=== PATIENT | female | born 1935 | race Caucasian/White ===

== ENCOUNTER 2018-08-12 06:56 | Day surgery (SDC) | payer MEDICARE, OTHER ==
[2018-08-11 12:03] LABS: BASOPHILS # (AUTO) 0.1 X10'3 (0-0.2); BASOPHILS % (AUTO) 1.1 % (0-1); EOSINOPHILS # (AUTO) 0.2 X10'3 (0-0.9); EOSINOPHILS % (AUTO) 3.1 % (0-6); HEMATOCRIT 35.6 % (35.0-45.0); HEMOGLOBIN 12.1 g/dl (12.0-16.0); LYMPHOCYTES # (AUTO) 1.8 X10'3 (1.1-4.8); LYMPHOCYTES % (AUTO) 28.8 % (21-51); MEAN CORPUSCULAR HGB CONC 34.1 g/dL (33.0-36.5); MEAN CORPUSCULAR VOLUME 90.9 FL (78-98); MEAN PLATELET VOLUME 7.3 FL (7.4-10.4); MONOCYTES # (AUTO) 0.6 X10'3 (0-0.9); MONOCYTES % (AUTO) 9.1 % (2-12); NEUTROPHILS # (AUTO) 3.7 X10'3 (1.8-7.7); NEUTROPHILS % (AUTO) 57.9 % (42-75); PLATELET COUNT 288 X10'3 (140-440); RED BLOOD COUNT 3.92 X10'6 (4.20-5.60); RED CELL DISTRIBUTION WIDTH 12.9 % (11.5-14.5); WHITE BLOOD COUNT 6.4 X10'3 (4.5-11.0)
[2018-08-11 12:11] LABS: ALBUMIN 3.7 G/DL (3.4-5.0); ANION GAP 7 (8-16); BLOOD UREA NITROGEN 18 MG/DL (7-18); BUN/CREATININE RATIO 16.7 (6.6-38.0); CALCIUM 9.2 MG/DL (8.5-10.1); CHLORIDE 103 MMOL/L (99-107); CREATININE 1.08 MG/DL (0.40-0.90); GLUCOSE 94 MG/DL (70-104); POTASSIUM 4.6 MMOL/L (3.5-5.1); SODIUM 137 MMOL/L (135-145); TOTAL CARBON DIOXIDE 27.4 MMOL/L (24-32); eGFR 48 ML/MIN
[2018-08-11 12:13] LABS: INR 1.2 INR; PROTHROMBIN TIME 11.9 SECONDS (9.0-12.0)
[2018-08-12] VITALS (9 sets, daily range): BP systolic 115–184; BP diastolic 72–107
[~2018-08-12] VITALS: Ht 154.9 cm; Wt 59.2 kg
[~2018-08-12 06:56] MED LIST: DABI150C PO; FISH OIL 500 M1 EACH PO; FLAX100015 PO; NAPR-56 CORPAK; SOTA80TA73 PO
[2018-08-12] MEDS ORDERED: amiodarone in dextrose, iso-osm 150mg/100ml bag IV ONE (07:15)
[2018-08-12] MEDS ORDERED: LORazepam 0.5 MG tablet PO ONE (07:15)
[2018-08-12] MEDS ORDERED: diphenhydrAMINE 25mg capsule PO ONE (07:15)
[2018-08-12] MEDS ORDERED: MIDAZolam 5mg/ml 2ml vial IV ONE (07:15)
[2018-08-12] MEDS ORDERED: morphine 10mg/ml inj. IV ONE (07:15)
[2018-08-12] MEDS ORDERED: atropine 0.1mg/ml 10ml syringe IV ONE (07:15)
[2018-08-12] MEDS ORDERED: normal saline 1000ml 1,000 ML IV SCH (07:15)
[2018-08-12] MEDS ORDERED: FLEC100T2 PO (07:33)
[2018-08-12] MEDS ORDERED: HEPA1DIS11 SUBCUT (07:33)
[2018-08-12] MEDS ORDERED: CHOL10002 PO (07:33)
[2018-08-12] MEDS ORDERED: OCCUVITE PO (07:33)
[2018-08-12] MEDS ORDERED: CARV3.12 PO (07:33)
== END 2018-08-12 10:25 | disposition home or self-care (01) ==
LOC: SSTAY O 06:56 → EDSTATUS 09:00 → SSTAY O 10:25
PROVIDERS: ATTEND Internal Medicine Cardiovascular Disease
DX: I48.91 Unspecified atrial fibrillation (principal); I34.0 Nonrheumatic mitral (valve) insufficiency; I07.1 Rheumatic tricuspid insufficiency; I49.5 Sick sinus syndrome; J44.9 Chronic obstructive pulmonary disease, unspecified; Z98.890 Other specified postprocedural states; Z87.891 Personal history of nicotine dependence
CPT/HCPCS: 36415; 80048; 85025; 85610; 93005; 93312; J0282; J0461; J2250; J2270; J7030

== ENCOUNTER 2019-05-06 07:24 | Emergency (ER) | payer MEDICARE, OTHER ==
[~2019-05-06] VITALS: Ht 154.9 cm; Wt 61.3 kg
[~2019-05-06 07:24] MED LIST changes: +CARV3.12 PO; +CHOL10002 PO; -FISH OIL 500 M1 EACH PO; -FLAX100015 PO; +FLEC100T2 PO; +HEPA1DIS11 SUBCUT; -NAPR-56 CORPAK; +OCCUVITE PO; -SOTA80TA73 PO
[2019-05-06 08:17] LABS: BASOPHILS # (AUTO) 0.1 X10'3 (0-0.2); BASOPHILS % (AUTO) 1.3 % (0-1); EOSINOPHILS # (AUTO) 0.3 X10'3 (0-0.9); EOSINOPHILS % (AUTO) 4.2 % (0-6); HEMATOCRIT 31.9 % (35.0-45.0); HEMOGLOBIN 11.1 g/dl (12.0-16.0); LYMPHOCYTES # (AUTO) 1.6 X10'3 (1.1-4.8); LYMPHOCYTES % (AUTO) 22.1 % (21-51); MEAN CORPUSCULAR HGB CONC 34.6 g/dL (33.0-36.5); MEAN CORPUSCULAR VOLUME 89.5 FL (78-98); MEAN PLATELET VOLUME 6.9 FL (7.4-10.4); MONOCYTES # (AUTO) 0.7 X10'3 (0-0.9); MONOCYTES % (AUTO) 9.4 % (2-12); NEUTROPHILS # (AUTO) 4.5 X10'3 (1.8-7.7); PLATELET COUNT 302 X10'3 (140-440); RED BLOOD COUNT 3.57 X10'6 (4.20-5.60); WHITE BLOOD COUNT 7.2 X10'3 (4.5-11.0)
[2019-05-06 08:36] LABS: ALANINE AMINOTRANSFERASE 28 U/L (12-78); ALBUMIN 3.4 G/DL (3.4-5.0); ALBUMIN/GLOBULIN RATIO 0.9 (1.1-1.5); ALKALINE PHOSPHATASE 100 IU/L (46-116); ANION GAP 9 (8-16); ASPARTATE AMINO TRANSFERASE 26 U/L (10-37); BILIRUBIN,TOTAL 0.6 MG/DL (0.1-1.0); BLOOD UREA NITROGEN 14 MG/DL (7-18); CALCIUM 9.1 MG/DL (8.5-10.1); CHLORIDE 104 MMOL/L (99-107); CREATININE 1.17 MG/DL (0.40-0.90); GLUCOSE 102 MG/DL (70-104); POTASSIUM 4.1 MMOL/L (3.5-5.1); SODIUM 139 MMOL/L (135-145); TOTAL CARBON DIOXIDE 25.9 MMOL/L (24-32); TOTAL PROTEIN 7.4 G/DL (6.4-8.2); eGFR 44 ML/MIN
[2019-05-06] MEDS ORDERED: iohexol 350MG/ML 100ml bottle IV ONE (08:42)
[2019-05-06] MEDS ORDERED: furosemide 10 MG/1 ML 10ml inj IV ONE (09:25)
--- NOTE | 2019-05-06 11:19 | NUR ---
PT ABULATED WITH PT SAT STATED AT 94%, NOTIFIED QUIQUE.
[2019-05-06] MEDS ORDERED: FURO-150 PO (11:21)
[2019-05-06] MEDS ORDERED: POTA10TA10 PO (11:21)
[2019-05-06 11:49] VITALS: BP 170/77
== END 2019-05-06 11:51 | disposition home or self-care (01) ==
LOC: ER 07:24
DX: I50.9 Heart failure, unspecified (principal); I48.0 Paroxysmal atrial fibrillation; Z79.899 Other long term (current) drug therapy
CPT/HCPCS: 36415; 71045; 71260; 80053; 83880; 84484; 85025; 87040; 93005; 96374; 99284; J1940; Q9967

== ENCOUNTER 2023-07-31 10:40 | Emergency (ER) | payer MEDICARE, OTHER ==
[~2023-07-31] VITALS: Ht 154.9 cm; Wt 59.3 kg
[~2023-07-31 10:40] MED LIST changes: +FURO-150 PO
[2023-07-31 10:46] VITALS: BP 144/97; PULSE 79; RESP 18; O2SAT 98
[2023-07-31] MEDS ORDERED: PRED20TA PO (11:49)
[2023-07-31] MEDS ORDERED: ACET-3068 PO (11:49)
[2023-07-31] MEDS ORDERED: GABA300C PO (11:49)
[2023-07-31 12:00] VITALS: TEMP 97
== END 2023-07-31 12:07 | disposition home or self-care (01) ==
LOC: ER 10:40
DX: M54.81 Occipital neuralgia (principal); I48.91 Unspecified atrial fibrillation
CPT/HCPCS: 70450; 99284